=== PATIENT | female | born 1995 | race Hispanic/Latino ===

== ENCOUNTER 2016-12-25 13:17 | Emergency (ER) | payer BC | END 2016-12-25 13:42 | disposition home or self-care (01) | LOC: NAV ERS 13:17 | DX: J06.9 Acute upper respiratory infection, unspecified (principal) | CPT/HCPCS: 99283 ==

== ENCOUNTER 2016-12-30 15:46 | Emergency (ER) | payer BC ==
[2016-12-30 16:16] LABS: Bilirubin Negative (Negative); Blood, Urine Negative (Negative); Glucose, Urine (Dipstick) Negative (Negative); Ketone, Urine Negative (Negative); Nitrite Negative (Negative); Protein, Urine (Dipstick) Negative (Neg-Trace); Urobilinogen 0.2 mg/dL (0.2-1.0)
[2016-12-30 16:24] LABS: RBC/HPF None Seen HPF (0-3)
[2016-12-30 16:25] LABS: Bacteria/HPF 2+ HPF (None Seen)
[2016-12-30] MEDS ORDERED: Cephalexin 500 MG CAP ONE (17:03)
== END 2016-12-30 17:25 | disposition home or self-care (01) ==
LOC: NAV ERS 15:46
DX: N39.0 Urinary tract infection, site not specified (principal)
CPT/HCPCS: 81003; 81015; 87086; 99283